=== PATIENT | female | born 1985 | race Caucasian/White ===

== ENCOUNTER → 2022-04-20 | Outpatient (CLI) | payer BC ==
[2022-04-20 19:01] LABS: BASO # 0.05 K/mm3 (0.02-0.10); EOS # 0.07 K/mm3 (0.04-0.40); EOS % 0.7 % (1.0-5.0); HEMOGLOBIN 12.9 g/dL (12.5-16.0); LYMPH# 2.26 K/mm3 (1.50-4.00); MEAN CELL VOLUME 86 fl (78-100); MEAN CORPUSCULAR HEMOGLOBIN 27 pg (27-31); MEAN CORPUSCULAR HGB CONC 32 g/dL (33-37); MEAN PLATELET VOLUME 11.2 fl (7.4-10.4); MONO # 0.59 K/mm3 (0.20-0.80); NEU # 6.76 K/mm3 (1.40-6.50); PLATELET COUNT 297 K/mm3 (130-400); RED BLOOD COUNT 4.79 M/mm3 (4.10-5.30); RED CELL DISTRIBUTION WIDTH 13.3 % (11.5-14.5); WHITE BLOOD COUNT 9.7 K/mm3 (4.8-10.8)
[2022-04-20 19:13] LABS: ALBUMIN 4.2 g/dL (3.5-5.0); POTASSIUM 3.6 mmol/L (3.5-5.1)
[2022-04-20 19:14] LABS: CALCIUM 9.3 mg/dL (8.3-10.5)
[2022-04-20 19:15] LABS: TOTAL PROTEIN 6.9 g/dL (6.4-8.3)
[2022-04-20 19:17] LABS: TOTAL BILIRUBIN 0.2 mg/dL (0.2-1.2)
[2022-04-20 19:19] LABS: D-DIMER 0.48 mg/L FEU (0.15-0.50)
== END ==
LOC: LAB 18:42 → EDSTATUS 18:47
PROVIDERS: Nurse Practitioner Family
DX: R06.00 Dyspnea, unspecified (principal)

== ENCOUNTER → 2024-02-18 | Outpatient (CLI) | payer BC ==
[2024-04-07 10:45] LABS: CLUE CELLS NOT OBSERVED (Not Observd)
== END ==
LOC: LAB 10:06
PROVIDERS: Nurse Practitioner Family
DX: N89.8 Other specified noninflammatory disorders of vagina (principal)
CPT/HCPCS: Q0111